=== PATIENT | female | born 1975 | race Caucasian/White ===

== ENCOUNTER 2017-05-30 10:43 | Emergency (ER) | payer OTHER ==
[2017-05-30 11:46] VITALS: BP 112/69
--- NOTE | 2017-05-30 12:44 | UC ---
Complaint Female HPI - HPI Summary HPI Summary: Patient with a recent history and dx of chronic fatigue syndrome presents to the with CC of suprapubic pain, pressure and difficulty with starting a stream. Slight discomfort at first starting a stream while urinating described as a burning, but denies any other symptoms during urination. She has been fatigued more than usual and has been working closely with her PCP, Dr. Tucker. She states she has been drinking less water this week in effort to sleep through the night without waking (this helps out with the fatigue during the day.) She denies history of kidney stones, urinary retention, obstructive symptoms such as full bladder not being able to empty. Denies back pain, foul smelling urine or vaginal discharge. She denies new medications or any change in her health history. - History Of Current Complaint Chief Complaint: UCGU Stated Complaint: FREQUENT URINATION, PAIN Time Seen by Provider: 05/30/17 11:38 Hx Obtained From: Patient Hx Last Menstrual Period: 05/11/17 ?: No Onset/Duration: Sudden Onset Timing: Constant Severity Initially: Moderate Severity Currently: Moderate Pain Intensity: 0 Pain Scale Used: 0-10 Numeric Character: Dull Associated Signs And Symptoms: Negative: Fever, Back Pain, Vaginal Bleeding/ Discharge, Vaginal Discharge, Nausea, Genital Swelling, Genital Blisters, Retained Foregin Body (Specify) - Risk Factors Ectopic Risk Factor: Negative Ovarian Torsion Risk Factor: Reproductive Age - Allergies/Home Medications Allergies/Adverse Reactions: Allergies Allergy/AdvReac Type Severity Reaction Status Date / Time Azithromycin [From Zithromax] Allergy Rash Verified 05/21/14 16:12 Tetracycline Allergy Rash Verified 05/21/14 16:12 Home Medications: Home Medications Ascorbic Acid TAB* [Vitamin C TAB*] 500 mg PO DAILY 05/30/17 [History Confirmed 05/30/17] Docusate Sodium [Colace] 100 mg PO 05/30/17 [History] Hydrocortisone [Cortef] 7.5 mg PO 05/30/17 [History] Lactobacillus [Probiotic] 1 cap PO 05/30/17 [History] Levothyroxine Sodium [Synthroid] 112 mcg PO 05/30/17 [History] Liothyronine TAB* [Cytomel TAB*] 10 mcg PO DAILY 05/30/17 [History Confirmed ] Melatonin 2.5 mg PO 05/30/17 [History] Misc Natural Products [Pantethine Plus] 1 tab PO 05/30/17 [History] Multiple Vitamins W/ Minerals [Multivitamin Women] 1 tab PO 05/30/17 [History] Vitamin E 1,000 unit PO 05/30/17 [History] Zaleplon [Sonata] 05/30/17 [History] PMH/Surg Hx/FS Hx/Imm Hx Previously Healthy: Yes - Surgical History Surgical History: Yes Surgery Procedure, Year, and Place: rt ulnar nerve repair r/t carpal tunnel - Family History Known Family History: Positive: None - Social History Occupation: Employed Full-time Lives: With Family Alcohol Use: Rare Substance Use Type: None Smoking Status (MU): Never Smoked Tobacco Review of Systems Constitutional: Negative Skin: Negative Respiratory: Negative Cardiovascular: Negative Gastrointestinal: Abdominal Pain - suprapubic Genitourinary: Negative - denies dysuria, frequency, hematuria Motor: Negative Neurovascular: Negative Neurological: Negative Psychological: Negative Is Patient Immunocompromised?: No All Other Systems Reviewed And Are Negative: Yes Physical Exam Triage Information Reviewed: Yes Appearance: Well-Appearing, No Pain Distress, Well-Nourished Vital Signs: Initial Vital Signs Temp 98.6 F 05/30/17 11:41 Pulse 73 05/30/17 11:41 Resp 18 05/30/17 11:41 BP 112/69 05/30/17 11:41 Pulse Ox 97 05/30/17 11:41 Vital Signs Reviewed: Yes Eye Exam: Normal Eyes: Positive: Conjunctiva Clear Neck exam: Normal Neck: Positive: Supple, Nontender, No Lymphadenopathy Respiratory Exam: Normal Respiratory: Positive: Chest non-tender, Lungs clear Cardiovascular Exam: Normal Cardiovascular: Positive: RRR Abdomen Description: Negative: Hepatomegaly Musculoskeletal Exam: Normal Musculoskeletal: Positive: Strength Intact Psychological Exam: Normal Psychological: Positive: Normal Response To Family Skin Exam: Normal Complaint Female Dx - Course Course Of Treatment: Discussed with patient treatment options. UA negative. D/ t her symptoms, I have offered pyridium which is gentle on the bladder and may reduce the symptoms of fullness. I have given her instructions and parameters of use and to only use the medication if symptomatic. I have enocuraged her to return to Dr. Tucker as they are working carefully on her regimines/medications for her fatigue syndrome. Unknown if this is early obstructive symptoms. No blood in the urine or on UA. If symptoms persist, I recommend a urologist. I have encouraged more fluids early in the day and reduction of fluids at night so as to still remain on her sleep patterns. No symptoms to suggest PID/STD. - Differential Dx/Diagnosis Provider Diagnoses: Suprapubic Pain Discharge - Discharge Plan Condition: Stable Disposition: HOME Prescriptions: Phenazopyridine TAB* [Pyridium 100 mg TAB*] 100 mg PO TID #12 tab Patient Education Materials: Acute Urinary Retention in Women (ED) Referrals: Keara Tucker MD [Primary Care Provider] - Additional Instructions: I have given you information on urinary retention. I do believe you may have some at this time, although this is not an official diagnoses for you as I am unable to perform more testing Please follow up with Dr. Tucker as scheduled next week Your urine was negative I have given you pyridium 100mg up to three times daily only if you are feeling bladder pain or fullness If symptoms become worse, please return or go to the ED for further evaluation Pyridium: This medication is used to treat pain, burning, increased urination, and increased urge to urinate. These symptoms are usually caused by infection, injury, surgery, catheter, or other conditions that irritate the lower urinary tract. Pyridium will treat the symptoms of a urinary tract infection, but this medication does not treat the actual infection. Pyridium will most likely darken the color of your urine to an orange or red color. This is a normal effect and is not cause for alarm unless you have other symptoms such as pale or yellowed skin, fever, stomach pain, nausea, and vomiting. Darkened urine may also cause stains to your underwear, which may or may not be removed by laundering. It can also permanently stain soft contact lenses, and you should not wear them while taking this medicine.
== END 2017-05-30 12:24 | disposition home or self-care (01) ==
LOC: UCEAST 10:43
DX: R10.30 Lower abdominal pain, unspecified (principal); Z88.1 Allergy status to other antibiotic agents
CPT/HCPCS: 81003; 99212; G0463

== ENCOUNTER 2018-12-25 15:38 | Emergency (ER) | payer OTHER ==
[2018-12-25] MEDS ORDERED: Ketorolac *IM* INJ* 60 MG/2 ML VIAL IM ONE (16:05)
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
--- OUTSIDE RECORDS SUMMARY | 2018-12-25 16:42 | XMS REPORT | Continuity of Care Document ---
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 20 minutes every few hours, especially if you are doing activities that exacerbate the pain. I am referring you to orthopedics and am ordering an xray. Wear the VERO wrap during the day until you see orthopedics.Referral:Anahi Ernst MD, Surgery,Ortho Adult Recon
[2018-12-25] MEDS ORDERED: HYDROcodone/ACETAMIN 5-325 MG* 1 TAB PO ONE (17:48)
[2018-12-25] MEDS ORDERED: Cyclobenzaprine TAB* 10 MG PO ONE (17:48)
[2018-12-25] MEDS ORDERED: Dexamethasone TAB* 4 MG PO ONE (17:49)
[2018-12-25] MEDS ORDERED: Ondansetron ODT TAB* 4 MG PO ONE (18:27)
[2018-12-25 18:34] VITALS: BP 108/71
== END 2018-12-25 18:33 | disposition home or self-care (01) ==
LOC: ED 15:38
DX: M54.30 Sciatica, unspecified side (principal); Z88.1 Allergy status to other antibiotic agents; E03.9 Hypothyroidism, unspecified; R53.82 Chronic fatigue, unspecified
CPT/HCPCS: 96372; 99282; A9270-GY; J1885; J8540